=== PATIENT | female | born 1985 | race Asian ===

== ENCOUNTER 2020-10-12 11:40 | Outpatient (REF) | payer MEDICAID, SELFPAY ==
[2020-10-13 13:20] LABS: BV Int Neg Control Negative (Negative); BV Int Pos Control Positive (Positive)
[2020-10-14 02:17] LABS: C. trachomatis RNA TMA NOT DETECTED (NOT DETECTED); N. gonorrhoeae RNA TMA NOT DETECTED (NOT DETECTED)
== END 2020-10-12 11:41 | disposition home or self-care (01) ==
LOC: HO.LAB 11:40
PROVIDERS: PCP Nurse Practitioner Family; Visit Provider Obstetrics & Gynecology
DX: Z01.419 Encounter for gynecological examination (general) (routine) without abnormal findings (principal); N80.9 Endometriosis, unspecified; N64.52 Nipple discharge
CPT/HCPCS: 87480; 87491; 87510; 87591; 87660

== ENCOUNTER 2020-10-18 13:53 | Outpatient (REF) | payer MEDICAID, SELFPAY ==
--- NOTE | ~2020-10-18 | US_ITS ---
EXAMINATION: ULTRASOUND OF THE PELVIS CLINICAL INFORMATION: Right lower quadrant pain. COMPARISON: None. TECHNIQUE: Transabdominal and transvaginal pelvic ultrasound. A transvaginal study was performed in addition to the transabdominal study which did not yield an adequate examination of the uterus and ovaries due to superimposed distended gas-filled loops of bowel. FINDINGS: Anteverted, retroflexed uterus. The uterus is normal in size and appearance, measuring 12.7 x 5 x 7 cm longitudinally, anteroposteriorly and transversely. There is no abnormal endometrial thickening, with an IUD in place. No focal myometrial mass is seen. Nabothian cysts at the cervix. Fluid noted in the cervical canal. The ovaries bilaterally are visualized and appear normal, with the right ovary measuring 4 x 1.5 x 3.1 cm and the left ovary measuring 2.4 x 1.7 x 2.4 cm. No adnexal mass or free fluid collection seen. US/US transvaginal IMPRESSION: IUD in place in the endometrial canal. No uterine mass. No adnexal mass. Normal appearance of the ovaries..
--- NOTE | ~2020-10-18 | US_ITS ---
EXAMINATION: ULTRASOUND OF THE PELVIS CLINICAL INFORMATION: Right lower quadrant pain. COMPARISON: None. TECHNIQUE: Transabdominal and transvaginal pelvic ultrasound. A transvaginal study was performed in addition to the transabdominal study which did not yield an adequate examination of the uterus and ovaries due to superimposed distended gas-filled loops of bowel. FINDINGS: Anteverted, retroflexed uterus. The uterus is normal in size and appearance, measuring 12.7 x 5 x 7 cm longitudinally, anteroposteriorly and transversely. There is no abnormal endometrial thickening, with an IUD in place. No focal myometrial mass is seen. Nabothian cysts at the cervix. Fluid noted in the cervical canal. The ovaries bilaterally are visualized and appear normal, with the right ovary measuring 4 x 1.5 x 3.1 cm and the left ovary measuring 2.4 x 1.7 x 2.4 cm. No adnexal mass or free fluid collection seen. US/US pelvic complete IMPRESSION: IUD in place in the endometrial canal. No uterine mass. No adnexal mass. Normal appearance of the ovaries..
== END 2020-10-18 13:54 | disposition home or self-care (01) ==
LOC: HO.US 13:53
PROVIDERS: PCP Nurse Practitioner Family; Visit Provider Obstetrics & Gynecology
DX: R10.31 Right lower quadrant pain (principal); N80.9 Endometriosis, unspecified
CPT/HCPCS: 76830; 76856

== ENCOUNTER → 2021-01-25 15:00 | Outpatient (BNVA) | payer MEDICAID, SELFPAY | PROVIDERS: PCP Nurse Practitioner Family; Visit Provider Obstetrics & Gynecology | DX: N80.9 Endometriosis, unspecified (principal) | CPT/HCPCS: 99212 ==

== ENCOUNTER → 2021-10-15 13:56 | Outpatient (BNVA) | payer MEDICAID, SELFPAY | PROVIDERS: PCP Nurse Practitioner Family; Visit Provider Advanced Practice Midwife ==